=== PATIENT | female | born 1985 ===

== ENCOUNTER 2024-02-13 06:46 | Day surgery (SDC) | payer OTHER ==
[~2024-02-13] VITALS: Ht 170.2 cm; Wt 101.2 kg
[~2024-02-13 06:46] MED LIST: TOPROL XL25 M1 PO
[2024-02-13] MEDS ORDERED: POVIDONE-IODINE 118 ML BOTT TOP ONE (19:00)
[2024-02-13] MEDS ORDERED: PROMETHAZINE HCL 50 MG/ML AMPUL IM ONE (19:15)
[2024-02-13] MEDS ORDERED: MORPHINE SULFATE 4 MG/ML VIAL IV PRN (19:15)
== END 2024-02-14 01:30 | disposition home or self-care (01) ==
LOC: CIR.AMB 06:46
PROVIDERS: ATTEND Obstetrics & Gynecology Obstetrics
DX: N93.8 Other specified abnormal uterine and vaginal bleeding (principal); I10 Essential (primary) hypertension; E78.00 Pure hypercholesterolemia, unspecified